=== PATIENT | female | born 1975 | race Caucasian/White ===

== ENCOUNTER → 2018-06-26 | Outpatient (CLI) | payer BC | LOC: MC.RAD 13:00 | DX: Z12.31 Encounter for screening mammogram for malignant neoplasm of breast (principal) ==

== ENCOUNTER 2020-07-18 15:11 | Outpatient (RCR) | payer OTHER | END 2020-10-16 | disposition home or self-care (01) | LOC: WSOH | DX: S90.212A Contusion of left great toe with damage to nail, initial encounter (principal); Y99.0 Civilian activity done for income or pay ==

== ENCOUNTER → 2021-06-14 | Outpatient (CLI) | payer BC, OTHER | LOC: MC.RAD 09:43 | DX: Z12.31 Encounter for screening mammogram for malignant neoplasm of breast (principal) ==

== ENCOUNTER → 2022-06-15 | Outpatient (CLI) | payer BC, OTHER | LOC: MC.RAD 09:24 | DX: Z12.31 Encounter for screening mammogram for malignant neoplasm of breast (principal) ==